=== PATIENT | female | born 1950 | race Caucasian/White ===

== ENCOUNTER → 2017-03-06 | Outpatient (CLI) | payer MEDICARE ==
--- NOTE | 2017-03-09 08:06 | MM ---
Reason for exam: screening (asymptomatic). Last mammogram was performed 1 year and 6 months ago. History: Patient is postmenopausal. Family history of breast cancer in mother at age 70. Benign right mammotome panel of the right breast, August 08, 2010. Benign excisional biopsy of the right breast, September 03, 1998. Benign core biopsy of the right breast, January 23, 1998. Benign stereotactic core biopsy of the right breast, January 23, 1998. 2 excisional biopsies of the right breast. Took estrogen for 2 years. Took progesterone for 2 years. Physical Findings: A clinical breast exam by your physician is recommended on an annual basis and results should be correlated with mammographic findings. MG 3D Screening Mammo W/Cad Bilateral CC and MLO view(s) were taken. Prior study comparison: August 24, 2015, bilateral MG 3d screening mammo w/cad. September 16, 2012, CAD bilateral diagnostic mammogram. There are scattered fibroglandular densities. Finding: There are typically benign calcifications. Previous mammotome biopsy in the right breast. No significant changes in finding since August 24, 2015 and September 16, 2012. ASSESSMENT: Benign, BI-RAD 2 RECOMMENDATION: Routine screening mammogram of both breasts in 1 year.
== END | disposition home or self-care (01) ==
LOC: RADMAMWWP 15:36
PROVIDERS: ATTEND Nurse Practitioner Family
DX: Z12.31 Encounter for screening mammogram for malignant neoplasm of breast (principal)
CPT/HCPCS: 77063; G0202

== ENCOUNTER → 2018-09-17 | Outpatient (CLI) | payer MEDICARE ==
--- NOTE | 2018-09-17 14:25 | MM ---
Reason for exam: screening (asymptomatic). Last mammogram was performed 1 year and 6 months ago. History: Patient is postmenopausal. Family history of breast cancer in mother at age 70. Benign right mammotome panel of the right breast, August 08, 2010. Benign excisional biopsy of the right breast, September 03, 1998. Benign core biopsy of the right breast, January 23, 1998. Benign stereotactic core biopsy of the right breast, January 23, 1998. 2 excisional biopsies of the right breast. Took estrogen for 2 years. Took progesterone for 2 years. Physical Findings: A clinical breast exam by your physician is recommended on an annual basis and results should be correlated with mammographic findings. MG 3D Screening Mammo W/Cad Bilateral CC and MLO view(s) were taken. Prior study comparison: March 06, 2017, bilateral MG 3d screening mammo w/cad. August 24, 2015, bilateral MG 3d screening mammo w/cad. There are scattered fibroglandular densities. There is a new 2-3mm round, oval, circumscribed right upper outer quadrant mass at anterior depth. No suspicious abnormality on left. Post surgical changes bilaterally. ASSESSMENT: Incomplete: need additional imaging evaluation, BI-RAD 0 RECOMMENDATION: Ultrasound of the right breast. [facility] will attempt to contact patient to return for ultrasound.
== END | disposition home or self-care (01) ==
LOC: RADMAMWWP 07:34
PROVIDERS: ATTEND Nurse Practitioner Family
DX: Z12.31 Encounter for screening mammogram for malignant neoplasm of breast (principal)
CPT/HCPCS: 77063; 77067